=== PATIENT | male | born 1950 | race Caucasian/White ===

== ENCOUNTER 2021-05-11 17:15 | Emergency (ER) | payer OTHER, MEDICARE ==
[2021-05-11] VITALS (7 sets, daily range): BP systolic 137–185; BP diastolic 68–106
[~2021-05-11] VITALS: Ht 167.6 cm; Wt 122.7 kg
[2021-05-11 17:50] LABS: HEMATOCRIT 42.7 % (39.0-50.0); HEMOGLOBIN 14.6 g/dl (14.0-18.0); IMMATURE GRANULOCYTES 0.9 % (0.0-5.0); MEAN CELL VOLUME 101.2 fL CALC (80.0-100.0); MEAN CORPUSCULAR HGB 34.6 pG CALC (26.0-32.0); MEAN CORPUSCULAR HGB CONC 34.2 g/dL CAL (32.0-36.0); NEUT# 5.37 thou/uL (1.82-7.42); RED BLOOD COUNT 4.22 mill/uL (4.70-6.10); RED CELL DISTRI WIDTH 12.5 % (11.5-15.5)
[2021-05-11 18:04] LABS: ALBUMIN 4.3 g/dL (3.2-5.0); ALKALINE PHOSPHATASE 81 u/l (38-126); AMYLASE 62 u/l (30-110); ANION GAP 17 (6-22 (CALC)); BILIRUBIN, TOTAL 0.5 mg/dL (0.0-1.4); BUN 17 mg/dL (8-23); BUN/CREATININE RATIO 17 (12-20 (CALC)); CARBON DIOXIDE 22 mmol/l (22-30); CHLORIDE 105 mmol/l (95-108); ETHYL ALCOHOL 0 mg/dl (0-30); GFR > 60 ML/MIN (>=60 (CALC)); GFR FOR AFR.AMER. > 60 ML/MIN (>=60 (CALC)); LIPASE 102 u/l (23-300); POTASSIUM 4.1 mmol/l (3.5-5.1); SGOT/AST 32 u/l (19-48); SODIUM 140 mmol/l (137-146); TOTAL PROTEIN 7.5 g/dL (6.3-8.2)
[2021-05-11 18:09] LABS: ACT PARTIAL THROMBO TIME 21.9 SECONDS (20.0-32.5)
[2021-05-11 18:26] LABS: URINE BILIRUBIN - DIPSTICK NEGATIVE (NEGATIVE); URINE BLOOD DIPSTICK MODERATE (NEGATIVE); URINE COLOR YELLOW; URINE GLUCOSE - DIPSTICK NEGATIVE (NEGATIVE); URINE KETONE NEGATIVE (NEGATIVE); URINE LEUK ESTERASE NEGATIVE (NEGATIVE); URINE PH 5.5 (4.5-8.0); URINE PROTEIN - DIPSTICK NEGATIVE (NEG-TRACE); URINE SPECIFIC GRAVITY 1.025; URINE UROBILINOGEN - DIPSTICK 0.2 E.U./dL (0.2)
[2021-05-11 18:27] LABS: URINE NITRITE - DIPSTICK NEGATIVE (Negative)
[2021-05-11 18:33] LABS: URINE WBC 0-2 WBC/hpf (0-5)
== END 2021-05-11 18:39 | disposition short-term general hospital (02) | DRG 605 ==
LOC: ED 17:15
PROC: 0T9B70Z Drainage of Bladder with Drainage Device, Via Natural or Artificial Opening (ICD-10-PCS; principal; 2021-05-11)
PROC: 2W3EX1Z Immobilization of Right Hand using Splint (ICD-10-PCS; 2021-05-11)
DX: S00.03XA Contusion of scalp, initial encounter (principal); S62.231A Other displaced fracture of base of first metacarpal bone, right hand, initial encounter for closed fracture; S50.812A Abrasion of left forearm, initial encounter; I10 Essential (primary) hypertension; V23.4XXA Motorcycle driver injured in collision with car, pick-up truck or van in traffic accident, initial encounter; Z79.01 Long term (current) use of anticoagulants; Z95.5 Presence of coronary angioplasty implant and graft
CPT/HCPCS: J0131